=== PATIENT | female | born 1960 | race Caucasian/White ===

== ENCOUNTER 2017-08-24 12:09 | Emergency (ER) | payer MEDICAID, MEDICARE ==
[~2017-08-24] VITALS: Ht 160 cm; Wt 74.8 kg
[~2017-08-24 12:09] MED LIST: FLUT1DIS28 IH; HYDR12.56 PO; LISI-552 PO; OMEP20CA6 PO; ONDN4T PO; TIOT18CA2 IH
--- OUTSIDE RECORDS SUMMARY | 2017-08-24 12:13 | XMS REPORT | Continuity of Care Document ---
Author Author [facility] Organization [facility] Address Unknown Phone Unavailable Allergies Active Description Code Type Severity Reaction Onset Reported/Identified Relationship to Patient Clinical Status Yes amoxicillin [id number] Drug Allergy Unknown N/A 10/26/2015 Yes codeine [id number] Drug Allergy Unknown N/A 10/26/2015 Yes morphine [id number] Drug Allergy Unknown N/A 10/26/2015 Yes No Known Drug Allergies [id number] Drug Allergy Unknown N/ A 10/26/2015 Yes oxycodone [id number] Drug Allergy Unknown N/A 10/26/2015 Yes Penicillins [id number] Drug Allergy Unknown N/A 10/26/2015 Medications Problems Date Dx Coded Attending Type Code Diagnosis Diagnosed By 11/01/2015 ALEXANDRU JOINER, YANETH M Ot K20.9 11/01/2015 ALEXANDRU JOINER, YANETH M Ot K25.9 11/01/2015 ALEXANDRU JOINER, YANETH Resendiz Ot K26.9 11/01/2015 ALEXANDRU JOINER, YANETH Resendiz Ot K29.70 11/01/2015 ALEXANDRU JOINER, YANETH M Ot K44.9 11/02/2015 ALEXANDRU JOINER, YANETH Resendiz Ot B96.81 11/02/2015 ALEXANDRU JOINER, YANETH M Ot K20.9 11/02/2015 ALEXANDRU JOINRE, YANETH M Ot K25.9 11/02/2015 ALEXANDRU JOINER, YANETH M Ot K26.9 11/02/2015 ALEXANDRU JOINER, YANETH M Ot K29.70 11/02/2015 ALEXANDRU JOINER, YANETH Resendiz Ot K44.9 11/20/2015 ALEXANDRU JOINER, YANETH Resendiz Ot B96.81 11/20/2015 ALEXANDRU JOINER, YANETH Resendiz Ot K20.9 11/20/2015 ALEXANDRU JOINER, YANETH Resendiz Ot K25.9 11/20/2015 ALEXANDRU JOINER, YANETH eRsendiz Ot K26.9 11/20/2015 ALEXANDRU JOINER, YANETH Resendiz Ot K29.70 11/20/2015 ALEXANDRU JOINER, YANETH Resendiz Ot K44.9 12/06/2015 ALEXANDRU JOINER, YANETH Resendiz Ot B96.81 12/06/2015 ALEXANDRU JOINER, YANETH Resendiz Ot K20.9 12/06/2015 ALEXANDRU JOINER, YANETH Resendiz Ot K25.9 12/06/2015 ALEXANDRU JOINER, YANETH Resendiz Ot K26.9 12/06/2015 ALEXANDRU JOINER, YANETH Resendiz Ot K29.70 12/06/2015 ALEXANDRU JOINER, YANETH Resendiz Ot K44.9 Procedures Results Encounters ACCT No. Visit Date/Time Discharge Status Pt. Type Provider Facility Loc./Unit Complaint [id number] 10/26/2015 17:36:00 2014 23:59:59 [facility] Outpatient ALEXANDRU JOINER, YANETH Resendiz [facility]
[2017-08-24 13:04] VITALS: BP 200/106
--- NOTE | 2017-08-24 13:16 | ED Neck-Back Pain/Injury ---
General Chief Complaint: Head/Cervical Problems Stated Complaint: ABSCESS Nursing Triage Note: ADMT TO ED WITH POSSIBLE BITE TO BACK OF HEAD SHE SAID OCCURED ON FRI HAD HAD PAIN IN HEAD AND NECK. WAS TO SEE FAMILY ON FRIDAY DID NOT MAKE APPOINTMENT . TO ED PER [facility]. Nursing Sepsis Screen: No Definite Risk Source of Information: Patient Exam Limitations: No Limitations History of Present Illness Time Seen by Provider: 13:12 Initial Comments The patient is a 56-year-old white female who came by ambulance from [facility]. Her complaint is neck pain. She reports that she has not felt good and a month or more. 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 She reports that about a week ago while driving a bug flew in and bit her on the neck near the left mastoid. The pain has come on since that time. She is noted to be rather severely hypertensive. She takes lisinopril 20/ hydrochlorothiazide 12.5 twice daily. She knows this has not controlled her blood pressure. 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 Timing/Duration: Other Pain/Injury Location: Neck Method of Injury: Unknown Allergies and Home Medications Allergies Coded Allergies: Penicillins (Verified Allergy, Unknown, 10/26/15) amoxicillin (Verified Allergy, Unknown, 10/26/15) codeine (Verified Allergy, Unknown, 10/26/15) morphine (Verified Allergy, Unknown, 10/26/15) oxycodone (Verified Allergy, Unknown, 10/26/15) Home Medications Fluticasone/Salmeterol 1 Each Blst.w.dev, 1 EACH IH, (Reported) Hydrochlorothiazide 12.5 Mg Tablet, 12.5 MG PO DAILY, (Reported) Lisinopril 20 Mg Tablet, 20 MG PO DAILY, (Reported) Omeprazole 20 Mg Capsule., 20 MG PO BID, #60 Ref 3 Prescribed by: YANETH HORVATH on 10/26/151824 Ondansetron HCl 4 Mg Tab, 4 MG PO Q6H, #10 Prescribed by: YANETH HORVATH on 10/26/151825 Tiotropium [place] 1 Inh Aerp, 1 INH IH, (Reported) Constitutional: see HPI EENTM: no symptoms reported Respiratory: no symptoms reported Cardiovascular: no symptoms reported Gastrointestinal: no symptoms reported Genitourinary: no symptoms reported Musculoskeletal: neck pain Skin: other (bite left mastoid area) Psychiatric/Neurological: No Symptoms Reported Past Knrcpqs-Ktqans-Twqohv Hx Patient Social History Alcohol Use: Denies Use Recreational Drug Use: No Smoking Status: Never a Smoker Recent Foreign Travel: No Contact w/Someone Who Travel: No Recent Infectious Disease Expo: No Surgeries History of Surgeries: Yes (BACK, EAR DRUM, HERNIA) Surgeries: Gallbladder, Hysterectomy Respiratory History of Respiratory Disorde: Yes Respiratory Disorders: Asthma Cardiovascular History of Cardiac Disorders: Yes Cardiac Disorders: Hypertension Neurological History of Neurological Disord: No Gastrointestinal History of Gastrointestinal Di: No Musculoskeletal History of Musculoskeletal Dis: No Endocrine History of Endocrine Disorders: No Cancer History of Cancer: No Psychosocial History of Psychiatric Problem: No Physical Exam Vital Signs Vital Sign - Last 12Hours 08/24/17 12:13 Temp 97.9 Pulse 75 Resp 18 B/P (MAP) 233/125 Pulse Ox 97 O2 Delivery Room Air Capillary Refill : Less Than 3 Seconds General Appearance: Mild Distress HEENT: Normal ENT Inspection Neck: Full Range of Motion, Normal Inspection, Non Tender, Supple, Other (no identifiable bite or abscess) Cardiovascular: Regular Rate, Rhythm, No Edema, No Gallop, No JVD, No Murmur, Normal Peripheral Pulses Respiratory: Chest Non Tender, Lungs Clear, Normal Breath Sounds, No Accessory Muscle Use, No Respiratory Distress, Accessory Muscle Use Gastrointestinal: Normal Bowel Sounds, No Organomegaly, No Pulsatile Mass, Non Tender, Soft Neurologic/Psychiatric: Alert, Oriented x3, No Motor/Sensory Deficits, Normal Mood/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, 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 Norm as Tested, Abnormal Cerebellar Tests Skin: Normal Color, Warm/Dry, Cool, Cyanosis Progress/Results/Core Measures Results/Orders Lab Results Laboratory Tests Test 08/24/17 12:50 Range/Units White Blood Count 8.7 4.3-11.0 10^3/uL Red Blood Count 5.99 H 4.35-5.85 10^6/uL Hemoglobin 12.9 11.5-16.0 G/DL Hematocrit 41 35-52 % Mean Corpuscular Volume 68 L 80-99 FL Mean Corpuscular Hemoglobin 22 L 25-34 PG Mean Corpuscular Hemoglobin Concent 32 32-36 G/DL Red Cell Distribution Width 18.8 H 10.0-14.5 % Platelet Count 329 130-400 10^3/uL Mean Platelet Volume 7.4-10.4 FL Neutrophils (%) (Auto) 63 42-75 % Lymphocytes (%) (Auto) 26 12-44 % Monocytes (%) (Auto) 6 0-12 % Eosinophils (%) (Auto) 4 0-10 % Basophils (%) (Auto) 1 0-10 % Neutrophils # (Auto) 5.5 1.8-7.8 X 10^3 Lymphocytes # (Auto) 2.3 1.0-4.0 X 10^3 Monocytes # (Auto) 0.5 0.0-1.0 X 10^3 Eosinophils # (Auto) 0.3 0.0-0.3 10^3/uL Basophils # (Auto) 0.1 0.0-0.1 10^3/uL Sodium Level 141 135-145 MMOL/L Potassium Level 4.0 3.6-5.0 MMOL/L Chloride Level 106 98-107 MMOL/L Carbon Dioxide Level 24 21-32 MMOL/L Anion Gap 11 5-14 MMOL/L Blood Urea Nitrogen 12 7-18 MG/DL Creatinine 0.85 0.60-1.30 MG/DL Estimat Glomerular Filtration Rate > 60 BUN/Creatinine Ratio 14 Glucose Level 95 70-105 MG/DL Calcium Level 9.4 8.5-10.1 MG/DL Total Bilirubin 0.8 0.1-1.0 MG/DL Aspartate Amino Transf (AST/SGOT) 14 5-34 U/L Alanine Aminotransferase (ALT/SGPT) 14 0-55 U/L Alkaline Phosphatase 86 40-136 U/L Total Protein 7.1 6.4-8.2 GM/DL Albumin 4.3 3.2-4.5 GM/DL My Orders Orders - CAROLA ALLEN MD Cbc With Automated Diff (08/24/17 13:10) Comprehensive Metabolic Panel (08/24/17 13:10) Ua Culture If Indicated (08/24/17 13:10) Ketorolac Injection (Toradol Injection) (08/24/17 13:30) Metoprolol Tartrate (Ir) Tab (Lopressor (08/24/17 13:30) Ketorolac Injection (Toradol Injection) (08/24/17 13:45) Ns Iv 1000 Ml (Sodium Chloride 0.9%) (08/24/17 14:30) Drug Screen Stat (Urine) (08/24/17 14:31) Medications Given in ED Current Medications Medications Dose Ordered Sig/Anirudh Route Start Time Stop Time Status Last Admin Dose Admin Ketorolac Tromethamine 30 mg ONCE ONCE IVP 08/24/17 13:45 08/24/17 13:46 DC 08/24/17 13:38 30 MG Metoprolol Tartrate 50 mg ONCE ONCE PO 08/24/17 13:30 08/24/17 13:31 DC 08/24/17 13:42 50 MG Vital Signs/I&O Vital Sign - Last 12Hours 08/24/17 08/24/17 08/24/17 12:13 13:04 14:41 Temp 97.9 Pulse 75 Resp 18 B/P (MAP) 233/125 200/106 186/86 Pulse Ox 97 O2 Delivery Room Air Blood Pressure Mean: 137 Departure Communication (Admissions) Progress Notes The patient's blood pressures rather remarkably improved after her dose of metoprolol. It was still needs some tuning. She complains about headache but is informed that this may be relative to the degree of hypertension or even a migraine which may be helped by beta blockers. Impression Impression: Primary Impression: severe hypertension Additional Impression: headache Disposition: 01 HOME, SELF-CARE Condition: Improved Departure-Patient Inst. Decision time for Depature: 15:23 Referrals: NO,LOCAL PHYSICIAN (PCP) Primary Care Physician Add. Discharge Instructions: All discharge instructions reviewed with patient and/or family. Voiced understanding. Take metoprolol as prescribed. Follow-up with your provider for blood pressure management. Scripts Metoprolol Succinate (Metoprolol Succinate) 50 Mg Tab.er.24h 50 MG PO DAILY, #30 TAB 1 Refill Prov: CAROLA ALLEN MD 08/24/17 CAROLA ALLEN MD Aug 24, 2017 13:16
[2017-08-24 13:19] LABS: BASOPHILS # (AUTO) 0.1 10^3/uL (0.0-0.1); BASOPHILS % (AUTO) 1 % (0-10); EOSINOPHILS # (AUTO) 0.3 10^3/uL (0.0-0.3); EOSINOPHILS % (AUTO) 4 % (0-10); LYMPHOCYTES # (AUTO) 2.3 X 10^3 (1.0-4.0); LYMPHOCYTES % (AUTO) 26 % (12-44); MEAN CORPUSCULAR HEMOGLOBIN 22 PG (25-34); MEAN CORPUSCULAR HGB CONC 32 G/DL (32-36); MEAN CORPUSCULAR VOLUME 68 FL (80-99); MONOCYTES # (AUTO) 0.5 X 10^3 (0.0-1.0); MONOCYTES % (AUTO) 6 % (0-12); NEUTROPHILS # (AUTO) 5.5 X 10^3 (1.8-7.8); NEUTROPHILS % (AUTO) 63 % (42-75); PLATELET COUNT 329 10^3/uL (130-400); RED BLOOD COUNT 5.99 10^6/uL (4.35-5.85); RED CELL DISTRIBUTION WIDTH 18.8 % (10.0-14.5); WHITE BLOOD COUNT 8.7 10^3/uL (4.3-11.0)
[2017-08-24] MEDS ORDERED: meTOprolol TARTRATE 50 MG (LOPRESSOR) TAB PO ONE (13:30)
[2017-08-24] MEDS ORDERED: KETOROLAC 60 MG/2 ML VIAL IM ONE (13:30)
[2017-08-24 13:40] LABS: ALANINE AMINOTRANSFERASE 14 U/L (0-55); ALBUMIN 4.3 GM/DL (3.2-4.5); ANION GAP 11 MMOL/L (5-14); ASPARTATE AMINO TRANSFERASE 14 U/L (5-34); BILIRUBIN,TOTAL 0.8 MG/DL (0.1-1.0); BLOOD UREA NITROGEN 12 MG/DL (7-18); BUN/CREATININE RATIO 14; CALCIUM 9.4 MG/DL (8.5-10.1); CARBON DIOXIDE 24 MMOL/L (21-32); CHLORIDE 106 MMOL/L (98-107); CREATININE SERUM 0.85 MG/DL (0.60-1.30); GFR ESTIMATED > 60; GLUCOSE 95 MG/DL (70-105); SODIUM 141 MMOL/L (135-145); TOTAL PROTEIN 7.1 GM/DL (6.4-8.2)
[2017-08-24] MEDS ORDERED: KETOROLAC 30 MG/ML VIAL IVP ONE (13:45)
[2017-08-24] MEDS ORDERED: NS IV 1000 ML 1,000 ML IV SCH (14:30)
[2017-08-24 14:41] VITALS: BP 186/86
[2017-08-24] MEDS ORDERED: METO-272 PO (15:29)
[2017-08-24 15:42] VITALS: BP 159/88
== END 2017-08-24 15:42 | disposition home or self-care (01) ==
LOC: EDUNIT# 12:09 → ER 12:10
DX: I10 Essential (primary) hypertension (principal); J45.909 Unspecified asthma, uncomplicated; Z90.710 Acquired absence of both cervix and uterus
CPT/HCPCS: 36415; 80053; 85025